=== PATIENT | male | born 1945 | race Caucasian/White ===

== ENCOUNTER 2017-06-17 05:44 | Inpatient (IN) | payer MEDICARE, BC ==
[2017-06-10 14:20] LABS: BASOPHILS % (AUTO) 0.4 % (0-1); EOSINOPHILS # (AUTO) 0.1 X10'3 (0-0.9); EOSINOPHILS % (AUTO) 1.9 % (0-6); LYMPHOCYTES # (AUTO) 2.1 X10'3 (1.1-4.8); LYMPHOCYTES % (AUTO) 28.7 % (21-51); MEAN CORPUSCULAR HEMOGLOBIN 31.5 PG (27.0-31.0); MEAN CORPUSCULAR HGB CONC 33.8 % (33.0-36.5); MEAN CORPUSCULAR VOLUME 93.2 FL (78-98); MONOCYTES # (AUTO) 0.8 X10'3 (0-0.9); MONOCYTES % (AUTO) 11.4 % (2-12); NEUTROPHILS # (AUTO) 4.2 X10'3 (1.8-7.7); NEUTROPHILS % (AUTO) 57.6 % (42-75); PRE OP HEMATOCRIT 47.5 % (42.0-52.0); PRE OP HEMOGLOBIN 16.1 g/dL (14.0-17.9); PRE OP PLATELET COUNT 214 X10'3 (140-440); RED CELL DISTRIBUTION WIDTH 13.9 % (11.5-14.5)
[2017-06-10 14:24] LABS: CLARITY,URINE CLEAR (Clear); COLOR,URINE STRAW (Yellow); GLUCOSE, URINE NEGATIVE (Neg); KETONES,URINE NEGATIVE (Neg); LEUKOCYTE ESTERASE ,URINE NEGATIVE (Neg); NITRITES, URINE NEGATIVE (Neg); OCCULT BLOOD,URINE NEGATIVE (Neg); PH,URINE 5.5 (4.8-8.0); PROTEIN,URINE NEGATIVE (Neg); UROBILINOGEN,URINE 0.2 E.U/dL (0.2-1.0)
[2017-06-10 14:31] LABS: UA COLLECTION TYPE VOIDED
[2017-06-10 14:44] LABS: ALBUMIN 3.9 G/DL (3.4-5.0); ALBUMIN/GLOBULIN RATIO 1.2 (1.1-1.5); ALKALINE PHOSPHATASE 75 IU/L (46-116); BLOOD UREA NITROGEN 20 MG/DL (7-18); CALCIUM 9.1 MG/DL (8.5-10.1); CHLORIDE 105 MMOL/L (99-107); PRE OP ALT 48 U/L (30-65); PRE OP ANION GAP 9 (8-16); PRE OP AST 22 U/L (10-37); PRE OP BILIRUB, TOTAL 0.5 MG/DL (0.0-1.0); PRE OP GLUCOSE 95 MG/DL (70-104); PRE OP POTASSIUM 3.8 MMOL/L (3.4-5.1); PRE OP SODIUM 143 MMOL/L (135-145); TOTAL CARBON DIOXIDE 28.7 MMOL/L (24-32); TOTAL PROTEIN 7.2 G/DL (6.4-8.2); eGFR 74 ML/MIN
[~2017-06-17] VITALS: Ht 175.3 cm; Wt 208.0 kg
[2017-06-17] VITALS (12 sets, daily range): BP systolic 111–146; BP diastolic 27–117
[~2017-06-17 05:44] MED LIST: BUPR100T13 PO; CELE-193 PO; FAMO-128 PO; LOSA1TAB36 PO; ZOLP10TA5 PO; cefazolin/dext.iso 2gm/50ml 50 ML IV ONE; famotidine 20mg tablet PO ONE; ringers solution, lacted 1,000 ML IV SCH
[2017-06-17] MEDS ORDERED: LIDOcaine 1% (10mg/ml) 2ml vial ONE (06:51)
[2017-06-17] MEDS ORDERED: BUPIVAcaine 0.5% inj/PF 30 ML ONE (06:52)
[2017-06-17] MEDS ORDERED: epiNEPHrine 1 mg/ml inj ONE (06:52)
[2017-06-17] MEDS ORDERED: gelatin sponge, absorbable (Gelfoam 100) sponge TP ONE (06:53)
[2017-06-17] MEDS ORDERED: bacitracin 15gm ointment TP ONE (06:53)
[2017-06-17] MEDS ORDERED: Thrombin (Bovine) 5,000 unit vial TP ONE (06:53)
[2017-06-17] MEDS ORDERED: midazolam 2 mg/2 ml injection ONE (07:15)
[2017-06-17] MEDS ORDERED: sevoflurane 250ml liquid IH ONE (07:32)
[2017-06-17] MEDS ORDERED: ePHEDrine 50MG/ML INJ. ONE (08:35)
[2017-06-17] MEDS ORDERED: ondansetron/PF 4mg/2ml inj ONE (08:35)
[2017-06-17] MEDS ORDERED: 0.9 % SODIUM CHLORIDE 10 ML VIAL ONE (08:35)
[2017-06-17] MEDS ORDERED: propofol inj 20 ML IV ONE (08:35)
[2017-06-17] MEDS ORDERED: fentaNYL/PF 50MCG/1 ML 2ML syringe ONE ×2 (08:35→10:30)
[2017-06-17] MEDS ORDERED: dexamethasone sod phosphate 4mg/ml inj. ONE (08:35)
[2017-06-17] MEDS ORDERED: phenylephrine 10mg/ml inj IV ONE (08:36)
[2017-06-17] MEDS ORDERED: ringers solution, lacted 1,000 ML IV SCH (08:58)
[2017-06-17] MEDS ORDERED: meperidine/PF 25mg/ml syringe IV ONE (09:00)
[2017-06-17] MEDS ORDERED: fentaNYL/PF 50MCG/1 ML 2ML syringe IV PRN ×3 (09:00)
[2017-06-17] MEDS ORDERED: acetaminophen 1,000mg/100ml IV 100 ML IV PRN (09:00)
[2017-06-17] MEDS ORDERED: ondansetron/PF 4mg/2ml inj IV PRN ×2 (09:00→10:30)
[2017-06-17] MEDS ORDERED: proCHLORperazine 10 MG/2 ml inj IV PRN (09:00)
[2017-06-17] MEDS ORDERED: temazepam 15mg capsule PO PRN (10:30)
[2017-06-17] MEDS ORDERED: acetaminophen 325mg tablet PO PRN (10:30)
[2017-06-17] MEDS ORDERED: cyclobenzaprine 10mg tablet PO PRN (10:30)
[2017-06-17] MEDS ORDERED: normal saline 1000ml 1,000 ML IV SCH (10:30)
[2017-06-17] MEDS ORDERED: mag hydrox/Alum hydrox/simeth 30ml oral suspension PO PRN (10:30)
[2017-06-17] MEDS ORDERED: magnesium hydroxide 30ml (MOM) UD suspension PO PRN (10:30)
[2017-06-17] MEDS ORDERED: bisacodyl 10mg suppository rectal RC PRN (10:30)
[2017-06-17] MEDS ORDERED: diphenhydrAMINE 50 mg/ml inj IV PRN (10:30)
[2017-06-17] MEDS ORDERED: simethicone 125mg capsule PO PRN (10:30)
[2017-06-17] MEDS ORDERED: HYDROcodone/acetaminophen 10/325mg tab PO PRN (10:30)
[2017-06-17] MEDS ORDERED: zolpidem 5mg tablet PO PRN (10:40)
[2017-06-17] MEDS ORDERED: ipratropium/albuterol 3ml nebule IH ONE (10:55)
[2017-06-17] MEDS ORDERED: buPROPion 75mg tablet PO SCH (11:00)
[2017-06-17] MEDS ORDERED: ketorolac trometh. 30mg/ml inj. IV SCH (14:00)
[2017-06-17] MEDS ORDERED: cefazolin 1gm/NS 100mL 100 ML IV SCH (16:00)
[2017-06-18] MEDS ORDERED: HYDROchlorothiazide 12.5mg capsule PO SCH (08:00)
[2017-06-18] MEDS ORDERED: losartan 50mg tablet PO SCH (08:00)
[2017-06-18] MEDS ORDERED: HYDROCHLOROTHIAZIDE PO SCH (08:00)
[2017-06-18] MEDS ORDERED: famotidine 20mg tablet PO SCH (08:00)
[2017-06-18] MEDS ORDERED: LOSARTAN PO SCH (08:00)
== END 2017-06-17 13:05 | disposition home or self-care (01) | DRG 472 ==
LOC: PAS IN 05:44 → EDSTATUS 07:30
PROVIDERS: ADMIT Neurological Surgery; ATTEND Neurological Surgery
PROC: 0RG20A0 Fusion of 2 or more Cervical Vertebral Joints with Interbody Fusion Device, Anterior Approach, Anterior Column, Open Approach (ICD-10-PCS; 2017-06-17)
PROC: 0RT30ZZ Resection of Cervical Vertebral Disc, Open Approach (ICD-10-PCS; 2017-06-17)
PROC: BR10ZZZ Fluoroscopy of Cervical Spine (ICD-10-PCS; principal; 2017-06-17 07:32)
DX: M48.02 Spinal stenosis, cervical region (principal); M50.022 Cervical disc disorder at C5-C6 level with myelopathy; M47.12 Other spondylosis with myelopathy, cervical region; M50.023 Cervical disc disorder at C6-C7 level with myelopathy; I73.9 Peripheral vascular disease, unspecified; I10 Essential (primary) hypertension; M19.90 Unspecified osteoarthritis, unspecified site; Z96.653 Presence of artificial knee joint, bilateral; Z79.01 Long term (current) use of anticoagulants; Z79.899 Other long term (current) drug therapy; Z79.82 Long term (current) use of aspirin
CPT/HCPCS: 36415; 71046; 72040; 76001; 80053; 81003; 85025; 86885; 86900; 86901; 87070; 94640; A6255; A6257; A7000; C1713; C1729; J0171; J0690; J1100; J2250; J2370; J2405; J2704; J3010; J3490; J7030; J7120; L0172

== ENCOUNTER 2017-08-02 11:03 | Outpatient (CLI) | payer MEDICARE, BC ==
[~2017-08-02 11:03] MED LIST changes: -cefazolin/dext.iso 2gm/50ml 50 ML IV ONE; -famotidine 20mg tablet PO ONE; -ringers solution, lacted 1,000 ML IV SCH
== END 2017-08-02 23:59 | disposition home or self-care (01) ==
LOC: 64 CT 11:03
PROVIDERS: ATTEND Neurological Surgery
DX: M48.02 Spinal stenosis, cervical region (principal); Z98.890 Other specified postprocedural states
CPT/HCPCS: 72125

== ENCOUNTER 2020-11-15 05:10 | Emergency (ER) | payer OTHER, MEDICARE, BC ==
[~2020-11-15] VITALS: Ht 172.7 cm; Wt 104.0 kg
[~2020-11-15 05:10] MED LIST changes: +ASPI-1071 PO; -BUPR100T13 PO; -CELE-193 PO; +HYDR12.55 PO; -LOSA1TAB36 PO; +LOSA25TA96 PO; +OXYC-150 PO
[2020-11-15] MEDS ORDERED: normal saline 1000ml 1,000 ML IV ONE (05:40)
[2020-11-15 05:44] LABS: CLARITY,URINE CLEAR (Clear); COLOR,URINE STRAW (Yellow); GLUCOSE, URINE NEGATIVE (Neg); KETONES,URINE NEGATIVE (Neg); LEUKOCYTE ESTERASE ,URINE NEGATIVE (Neg); NITRITES, URINE NEGATIVE (Neg); OCCULT BLOOD,URINE NEGATIVE (Neg); PROTEIN,URINE NEGATIVE (Neg); UROBILINOGEN,URINE 0.2 E.U/dL (0.2-1.0)
[2020-11-15] MEDS ORDERED: acetaminophen 325mg tablet PO ONE (05:50)
[2020-11-15 05:53] LABS: UA COLLECTION TYPE CLN CATCH MIDSTREAM
[2020-11-15 06:44] LABS: BASOPHILS % (AUTO) 0.4 % (0-1); EOSINOPHILS % (AUTO) 0.4 % (0-6); HEMATOCRIT 42.6 % (42.0-52.0); HEMOGLOBIN 14.8 g/dl (14.0-17.9); LYMPHOCYTES # (AUTO) 0.7 X10'3 (1.1-4.8); LYMPHOCYTES % (AUTO) 6.4 % (21-51); MEAN CORPUSCULAR HEMOGLOBIN 31.4 PG (27.0-31.0); MEAN CORPUSCULAR HGB CONC 34.8 g/dL (33.0-36.5); MEAN CORPUSCULAR VOLUME 90.2 FL (78-98); MEAN PLATELET VOLUME 7.9 FL (7.4-10.4); MONOCYTES % (AUTO) 9.5 % (2-12); NEUTROPHILS # (AUTO) 8.9 X10'3 (1.8-7.7); NEUTROPHILS % (AUTO) 83.3 % (42-75); PLATELET COUNT 177 X10'3 (140-440); RED BLOOD COUNT 4.73 X10'6 (4.70-6.10); RED CELL DISTRIBUTION WIDTH 13.7 % (11.5-14.5); WHITE BLOOD COUNT 10.6 X10'3 (4.5-11.0)
[2020-11-15 07:07] LABS: ALANINE AMINOTRANSFERASE 35 U/L (12-78); ALBUMIN 3.8 G/DL (3.4-5.0); ALBUMIN/GLOBULIN RATIO 1.2 (1.1-1.5); ALKALINE PHOSPHATASE 70 IU/L (46-116); ANION GAP 10 (8-16); ASPARTATE AMINO TRANSFERASE 24 U/L (10-37); BILIRUBIN,TOTAL 0.5 MG/DL (0.1-1.0); BLOOD UREA NITROGEN 24 MG/DL (7-18); CALCIUM 8.5 MG/DL (8.5-10.1); CHLORIDE 103 MMOL/L (99-107); CREATININE 0.96 MG/DL (0.60-1.10); GLUCOSE 104 MG/DL (70-104); POTASSIUM 3.7 MMOL/L (3.5-5.1); SODIUM 138 MMOL/L (135-145); TOTAL CARBON DIOXIDE 25.3 MMOL/L (24-32); eGFR 77 ML/MIN
[2020-11-15 07:44] VITALS: BP 116/71
== END 2020-11-15 08:18 | disposition home or self-care (01) ==
LOC: ER 05:11
DX: E86.0 Dehydration (principal); Z20.822 Contact with and (suspected) exposure to COVID-19; R68.89 Other general symptoms and signs; R00.0 Tachycardia, unspecified; I10 Essential (primary) hypertension; Z98.890 Other specified postprocedural states; Z88.5 Allergy status to narcotic agent; Z79.82 Long term (current) use of aspirin; Z79.899 Other long term (current) drug therapy
CPT/HCPCS: 36415; 71045; 80053; 81003; 83605; 84145; 85025; 87040; 87077; 87186; 87635; 93005; 99285; C9803; J7030

== ENCOUNTER 2024-06-25 19:07 | Emergency (ER) | payer OTHER, MEDICARE, BC ==
[~2024-06-25] VITALS: Ht 172.7 cm; Wt 94.8 kg
[~2024-06-25 19:07] MED LIST changes: +LOSA-415 PO; -LOSA25TA96 PO
[2024-06-25 20:28] VITALS: BP 145/86; PULSE 60; TEMP 97.8; O2SAT 95
[2024-06-25 20:30] VITALS: RESP 16
== END 2024-06-25 20:32 | disposition home or self-care (01) ==
LOC: ER 19:07
DX: S22.32XA Fracture of one rib, left side, initial encounter for closed fracture (principal); Z88.5 Allergy status to narcotic agent; I10 Essential (primary) hypertension; Z98.890 Other specified postprocedural states; Z79.82 Long term (current) use of aspirin; W19.XXXA Unspecified fall, initial encounter; Y93.89 Activity, other specified; Y92.89 Other specified places as the place of occurrence of the external cause; Y99.8 Other external cause status
CPT/HCPCS: 71100; 73030; 99284

== ENCOUNTER 2024-09-16 07:08 | Emergency (ER) | payer OTHER, MEDICARE, BC ==
[~2024-09-16] VITALS: Ht 172.7 cm; Wt 70.4 kg
[2024-09-16 07:11] VITALS: TEMP 98.2
[2024-09-16 07:38] LABS: BASOPHILS % (AUTO) 0.3 % (0-1); EOSINOPHILS # (AUTO) 0.1 X10'3 (0-0.9); EOSINOPHILS % (AUTO) 1.4 % (0-6); HEMATOCRIT 46.5 % (42.0-52.0); HEMOGLOBIN 16.1 g/dl (14.0-17.9); LYMPHOCYTES # (AUTO) 1.6 X10'3 (1.1-4.8); LYMPHOCYTES % (AUTO) 19.2 % (21-51); MEAN CORPUSCULAR HEMOGLOBIN 31.2 PG (27.0-31.0); MEAN CORPUSCULAR HGB CONC 34.5 g/dL (33.0-36.5); MEAN CORPUSCULAR VOLUME 90.3 FL (78-98); MEAN PLATELET VOLUME 7.6 FL (7.4-10.4); MONOCYTES # (AUTO) 0.8 X10'3 (0-0.9); MONOCYTES % (AUTO) 9.7 % (2-12); NEUTROPHILS % (AUTO) 69.4 % (42-75); PLATELET COUNT 237 X10'3 (140-440); RED BLOOD COUNT 5.15 X10'6 (4.70-6.10); RED CELL DISTRIBUTION WIDTH 16.1 % (11.5-14.5); WHITE BLOOD COUNT 8.6 X10'3 (4.5-11.0)
[2024-09-16 07:49] LABS: ALANINE AMINOTRANSFERASE 25 U/L (12-78); ALBUMIN 3.8 G/DL (3.4-5.0); ALBUMIN/GLOBULIN RATIO 1.3 (1.1-1.5); ALKALINE PHOSPHATASE 85 IU/L (46-116); ANION GAP 7 (8-16); ASPARTATE AMINO TRANSFERASE 24 U/L (10-37); BILIRUBIN,TOTAL 0.5 MG/DL (0.1-1.0); BLOOD UREA NITROGEN 16 MG/DL (7-18); BUN/CREATININE RATIO 17.8 (10.0-20.0); CALCIUM 8.7 MG/DL (8.5-10.1); CHLORIDE 106 MMOL/L (99-107); GLUCOSE 107 MG/DL (70-104); LIPASE 18 U/L (16-77); POTASSIUM 4.1 MMOL/L (3.5-5.1); SODIUM 142 MMOL/L (135-145); TOTAL PROTEIN 6.7 G/DL (6.4-8.2); eCRCL 65 ML/MIN; eGFR 82 ML/MIN
[2024-09-16 08:35] LABS: BILIRUBIN,URINE NEGATIVE (Neg); CLARITY,URINE CLEAR (Clear); COLOR,URINE YELLOW (Yellow); GLUCOSE, URINE NEGATIVE (Neg); KETONES,URINE NEGATIVE (Neg); LEUKOCYTE ESTERASE ,URINE NEGATIVE (Neg); NITRITES, URINE NEGATIVE (Neg); OCCULT BLOOD,URINE NEGATIVE (Neg); PROTEIN,URINE NEGATIVE (Neg); UROBILINOGEN,URINE 0.2 E.U/dL (0.2-1.0)
[2024-09-16 08:36] LABS: UA COLLECTION TYPE NON-SPECIFIED
[2024-09-16 09:00] VITALS: BP 122/83; PULSE 86; RESP 16; O2SAT 93
--- NOTE | 2024-09-16 09:51 | Physician Documentation ---
History of Present Illness ~ Chief Complaint: Bloody Stools Stated Complaint: RECTAL BLEEDING Time Seen by MD: 07:45 Primary Medical Doctor: MARK Mode of Arrival: Dropped Off HPI One bloody bowel movement this morning mixed with stool Medication Reconciliation Allergies: Coded Allergies: hydrocodone (Unverified Allergy, Unknown, ITCHING, 06/25/24) morphine (Verified Allergy, Unknown, HALLUCINATIONS, 06/25/24) Scheduled Aspirin (Ecotrin*), 81 MG PO BIDBD Famotidine (Pepcid), 1 TAB PO DAILY, (Reported) Hydrochlorothiazide (Hydrochlorothiazide), 1 TAB PO DAILY, (Reported) Losartan Potassium* (Cozaar*), 50 MG PO DAILY, (Reported) Scheduled PRN Oxycodone HCl/Acetaminophen (Percocet 10-325 mg Tablet), 1 TAB PO Q4HPRN PRN for pain Zolpidem Tartrate* (Ambien*), 1 TABLET PO HS PRN for sleep, (Reported) Past Medical History Past Medical History: Hypertension Past Surgical History: orthopedic surgeries Smoking Status: Never smoker Alcohol Use: Rarely Drug Use: none Lives with: Family Lives In: Home Occupation: retired Review of Systems All Other Systems at this time: Reviewed and Negative Physical Exam Vital Signs: RN Vital Signs have been reviewed: Yes, Temperature: 98.2, Source: Temporal, Heart Rate: 90, Respiratory Rate: 16, BP: 144/92, Pulse Oximetry: 95, Weight: 70.400 Oxygen Flow Rate: 0 Physical Exam HEENT: PERRL, moist oral mucosa, EOMI Pulmonary: No respiratory distress Cardiac: RRR, no murmur, rub or gallop GI: nondistended, soft, nontender, no guarding, no rebound MSK: no deformity Skin: w/d/i, no rash Neuro: alert, nonfocal Psych: normal affect Progress Results/Orders Results/Orders Completed Orders - NATHANIEL ABRAHAM MD Urinalysis, Cult If Indicated (09/16/24 07:14) Cbc/Diff (09/16/24 07:14) BMP (09/16/24 07:14) Lipase (09/16/24 07:14) CMP (09/16/24 07:14) Vital Signs 09/16/24 09/16/24 09/16/24 07:11 08:00 08:04 Temp 98.2 Pulse 108 90 Resp 17 16 16 B/P (MAP) 146/88 144/92 (109) Pulse Ox 95 95 O2 Flow Rate 0 Laboratory Tests Test 09/16/24 07:25 09/16/24 08:24 White Blood Count 8.6 Red Blood Count 5.15 Hemoglobin 16.1 Hematocrit 46.5 Mean Corpuscular Volume 90.3 Mean Corpuscular Hemoglobin 31.2 H Mean Corpuscular Hemoglobin Concent 34.5 Red Cell Distribution Width 16.1 H Platelet Count 237 Mean Platelet Volume 7.6 Neutrophils (%) (Auto) 69.4 Lymphocytes (%) (Auto) 19.2 L Monocytes (%) (Auto) 9.7 Eosinophils (%) (Auto) 1.4 Basophils (%) (Auto) 0.3 Neutrophils # (Auto) 6.0 Lymphocytes # (Auto) 1.6 Monocytes # (Auto) 0.8 Eosinophils # (Auto) 0.1 Basophils # (Auto) 0.0 CBC Comment Sodium Level 142 Potassium Level 4.1 Chloride Level 106 Carbon Dioxide Level 29.0 Anion Gap 7 L Blood Urea Nitrogen 16 Creatinine 0.90 Estimated GFR/1.73 m2 82 BUN/Creatinine Ratio 17.8 Glucose Level 107 H Calcium Level 8.7 Total Bilirubin 0.5 Aspartate Amino Transf (AST/SGOT) 24 Alanine Aminotransferase (ALT/SGPT) 25 Alkaline Phosphatase 85 Total Protein 6.7 Albumin 3.8 Globulin 2.9 Albumin/Globulin Ratio 1.3 Lipase 18 Chemistry Comments Urine Specimen Description Non-specified Urine Color Yellow Urine Clarity Clear Urine pH 6.0 Urine Specific [place] 1.020 Urine Protein Negative Urine Glucose (UA) Negative Urine Ketones Negative Urine Occult Blood Negative Urine Nitrite Negative Urine Bilirubin Negative Urine Urobilinogen 0.2 Urine Leukocyte Esterase Negative Urine Culture Indicated Not ind Volume Urine Centrifuged 10 ml Urine Comment Medical Decision Making Findings 79 year old male with blood per rectum. Additional Comments Ddx = diverticulitis, AVM, bleeding hemorrhoid, colon CA Departure Disposition: HOME / SELF CARE / HOMELESS Impression: Primary Impression: Lower GI bleed Condition: Stable Discharge Instructions: Bloody Stools Additional Instructions: Please follow up with your physician immediately to schedule a follow up and possible colonoscopy. Referrals: NO PRIMARY CARE PROVIDER (PCP) Education Educated: Patient, Family Educated regarding: diagnosis, treatment, prognosis, need for follow up Signature Scribe Signature: . Attestation: . NATHANIEL ABRAHAM MD Sep 16, 2024 09:51
== END 2024-09-16 10:07 | disposition home or self-care (01) ==
LOC: ER 07:09
DX: K92.1 Melena (principal); I10 Essential (primary) hypertension; Z88.5 Allergy status to narcotic agent; Z79.82 Long term (current) use of aspirin
CPT/HCPCS: 36415; 80053; 81003; 83690; 85025; 99284

== ENCOUNTER 2024-09-19 03:39 | Inpatient (IN) | payer OTHER, MEDICARE, BC ==
[~2024-09-19] VITALS: Ht 172.7 cm; Wt 92.2 kg
[2024-09-19] MEDS ORDERED: pantoprazole 40mg IV 80 MG in normal saline 100ml IV soln 100 ML IV ONE (03:50)
--- NOTE | 2024-09-19 04:07 | Physician Documentation ---
History of Present Illness ~ Chief Complaint: Bloody Stools Stated Complaint: GI BLEEDING Time Seen by MD: 03:47 OK to notify your PCP?: Yes Primary Medical Doctor: MARK Source: patient, RN/, RN notes reviewed, old records Mode of Arrival: POV Exam Limitations: no limitations HPI 79 year old male presents to the emergency department for complaints of a lower GI bleed that he was diagnosed with on his pervious visit, 09/16/2024 He states that his stools are bright red and have a liquid consistency Patients partner described it a s a murder scene. They state bleeding happens all the time and not only after a bowel movement. Patient denies blood thinners. He denies any c ramps, hemorrhoids, fever, nausea, vomiting, or dizziness. Medication Reconciliation Allergies: Coded Allergies: hydrocodone (Unverified Allergy, Unknown, ITCHING, 06/25/24) morphine (Verified Allergy, Unknown, HALLUCINATIONS, 06/25/24) Scheduled Bupropion Hcl (Wellbutrin), 100 MG PO TID, (Reported) Famotidine (Pepcid), 1 TAB PO DAILY, (Reported) Hydrochlorothiazide (Hydrochlorothiazide), 1 TAB PO DAILY, (Reported) Losartan Potassium* (Cozaar*), 50 MG PO DAILY, (Reported) Trazodone HCl (Trazodone HCl), 1 TAB PO HS, (Reported) Scheduled PRN Oxycodone HCl/Acetaminophen (Percocet 10-325 mg Tablet), 1 TAB PO Q4HPRN PRN for pain Discontinued Medications Aspirin (Ecotrin*), 81 MG PO BIDBD Discontinued Reason: patient no longer taking Zolpidem Tartrate* (Ambien*), 1 TABLET PO HS PRN for sleep, (Reported) Discontinued Reason: patient no longer taking Past Medical History Past Medical History: Hypertension Past Surgical History: orthopedic surgeries Alcohol Use: Rarely Drug Use: none Lives with: Family Lives In: Home Occupation: retired Review of Systems All Other Systems at this time: Reviewed and Negative ROS As stated above in the HPI, otherwise all systems are reviewed and negative. Physical Exam Vital Signs: RN Vital Signs have been reviewed: Yes, Temperature: 98.3, Source: Oral, Heart Rate: 71, Respiratory Rate: 16, BP: 122/80, Pulse Oximetry: 95, Weight: 92.200 Oxygen Flow Rate: 0 Pulse Oximetry Reflects: adequate oxygenation Physical Exam General: The patient is well developed, well nourished, nontoxic appearing and is in no acute distress. Skin: [place], warm and dry with no rashes. HEENT: Head was normocephalic and atraumatic. Eyes - pupils equal, round, reactive to light and accommodation. Extraocular movements were intact. Conjunctivae were nonicteric. Ears - bilateral tympanic membranes were normal. The mouth and oropharynx were clear with moist mucous membranes. There were no pharyngeal exudates or erythema. Neck: Supple and nontender. There was no jugular venous distention, lymphadenopathy, thyromegaly or masses. Chest: Clear to auscultation bilaterally without wheezes, rales or rhonchi. No accessory muscle use. No dullness to percussion. Heart: Rate regular and rhythmic. S1, S2. No murmurs. Palpation of the chest wall was normal. No rubs or thrills. Abdomen: Hyperactive bowel sounds. Soft, nontender and nondistended. No guarding or rebound. No hepatosplenomegaly or palpable masses. Extremities: No cyanosis, clubbing or edema. The patient moves all extremities. Pulses were equal and symmetric. Neurologic: Cranial nerves II-XII were intact. Sensation was intact to light touch throughout. Motor strength was 5/5 in all four extremities. Deep tendon reflexes were intact in both upper and lower extremities. Psychologic: The patient was oriented to person, place and time. The patient demonstrated appropriate judgement and insight. Rectal: No fissures no masses and no hemorrhoids Bright red blood in the rectum. Progress Progress Note 0453: The case was discussed with the resident who was informed on the patient. 0513: A message regarding the case was left with Dr. Ortega regarding the patients case. Results/Orders Reviewed/noted all lab results: Yes Results/Orders Orders - BRANNON MONTOYA MD Electrocardiogram (09/19/24 03:47) Chest,Single View (09/19/24 04:00) Gastrocult Set Up (09/19/24 03:47) Hemocult Set Up (09/19/24 03:47) Normal Saline 1000ml (Sodium Chloride 10 (09/19/24 03:50) Monitor (09/19/24 03:47) Saline Lock (09/19/24 03:47) Ct Abdomen Pelvis (09/19/24 04:30) Page Hospitalist (09/19/24 04:48) Fill Out Med Reconciliation (09/19/24 04:48) Ultrasound Of Abdomen (09/19/24 06:18) Completed Orders - BRANNON MONTOYA MD Cbc/Diff (09/19/24 03:47) Lipase (09/19/24 03:47) Ethanol (09/19/24 03:47) MG (09/19/24 03:47) Urinalysis, Cult If Indicated (09/19/24 03:47) Pt Inr (09/19/24 03:47) PTT (09/19/24 03:47) Electrocardiogram (09/19/24 03:47) Chest,Single View (09/19/24 04:00) BMP (09/19/24 03:47) Type And Screen (09/19/24 04:05) Pantoprazole 40mg Iv (Protonix 40mg Iv) (09/19/24 04:35) [id number]/Na Sulf-Bicarb/Kcl Gal (Golytely (09/19/24 04:35) Ct Abdomen Pelvis (09/19/24 04:30) Iohexol 300mg/Ml 100ml Inj. (Omnipaque-3 (09/19/24 04:39) Ultrasound Of Abdomen (09/19/24 06:18) Normal Saline 1000ml (Sodium Chloride 10 (09/19/24 06:25) Medications Received in ER Medications (Trade) Dose Ordered Sig/Michael Route PRN Reason Start Time Stop Time Status Last Admin Dose Admin Sodium Chloride 1,000 ml @ 100 mls/hr Q10H ONCE IV 09/19/24 03:50 09/19/24 13:49 09/19/24 05:27 100 MLS/HR (Protonix 40mg IV) 80 mg ONCE ONCE IV 09/19/24 04:35 09/19/24 04:36 DC 09/19/24 05:28 80 MG (Golytely oral solution) 4,000 ml DIRECTED ONCE PO 09/19/24 04:35 09/19/24 04:36 DC 09/19/24 06:06 4,000 ML (sodium chloride 1000ml IV soln) 1,000 ml ONCE ONCE IVB 09/19/24 06:25 09/19/24 06:27 DC 09/19/24 06:40 1,000 ML Sodium Chloride 1,000 ml @ 50 mls/hr Q20H IV 09/19/24 07:45 09/19/24 08:10 50 MLS/HR Vital Signs 09/19/24 09/19/24 09/19/24 09/19/24 03:44 05:00 05:00 06:03 Temp 98.3 Pulse 71 75 76 Resp 16 16 18 18 B/P (MAP) 122/80 154/94 (114) 165/98 (120) Pulse Ox 95 98 99 O2 Flow Rate 0 2.0 2.0 09/19/24 09/19/24 06:45 06:45 Temp 98.3 Pulse 75 Resp 12 18 B/P (MAP) 151/103 (119) Pulse Ox 97 O2 Flow Rate 0 Laboratory Tests Test 09/19/24 04:08 09/19/24 04:30 09/19/24 06:15 White Blood Count 7.8 Red Blood Count 4.88 Hemoglobin 15.3 Hematocrit 44.5 Mean Corpuscular Volume 91.2 Mean Corpuscular Hemoglobin 31.2 H Mean Corpuscular Hemoglobin Concent 34.3 Red Cell Distribution Width 16.0 H Platelet Count 207 Mean Platelet Volume 7.7 Neutrophils (%) (Auto) 62.3 Lymphocytes (%) (Auto) 26.0 Monocytes (%) (Auto) 9.6 Eosinophils (%) (Auto) 1.7 Basophils (%) (Auto) 0.4 Neutrophils # (Auto) 4.8 Lymphocytes # (Auto) 2.0 Monocytes # (Auto) 0.7 Eosinophils # (Auto) 0.1 Basophils # (Auto) 0.0 CBC Comment Prothrombin Time 10.9 INR International Normalized Ratio 1.1 Activated Partial Thromboplast Time 28 Coagulation Comments Sodium Level 140 Potassium Level 4.0 Chloride Level 106 Carbon Dioxide Level 30.5 Anion Gap 4 L Blood Urea Nitrogen 16 Creatinine 0.83 Estimated GFR/1.73 m2 90 BUN/Creatinine Ratio 19.3 Glucose Level 93 Calcium Level 9.2 Magnesium Level 2.1 Albumin 3.6 Lipase 18 Chemistry Comments Ethyl Alcohol Level < 10 Stool Occult Blood Positive H Urine Specimen Description Non-specified Urine Color Straw Urine Clarity Clear Urine pH 7.0 Urine Specific [place] 1.010 Urine Protein Negative Urine Glucose (UA) Negative Urine Ketones Negative Urine Occult Blood Negative Urine Nitrite Negative Urine Bilirubin Negative Urine Urobilinogen 0.2 Urine Leukocyte Esterase Negative Urine Culture Indicated Not ind Volume Urine Centrifuged 10 ml Urine Comment Re-Evaluation Re-Evaluation : Re-Evaluation: Improved Progress Patient was seen and examined. Patient was given reassurance. The patient was placed on a monitor IV lines were established liz immediately receive 80 mg of IV Protonix as well as IV fluids. Patient was typed and screened. Later patient had a rectal exam that had bright red blood per rectum. Abdomen had hyperactive bowel sounds which was a bit concerning. CT scan was then obtained which did not show any mass or GI bleed. Patient was having some abdominal pain and ultrasound the abdomen was obtained and showed no acute abnormality. Laboratory work showed normal vitals H and H is 15 and 44 BUN 16 and creatinine 0.83 chemistries otherwise within normal limits. Patient was typed and screened. Consultation with the hospitalist was made. Patient has been drinking his GoLYTELY and is having frequent stools. Blood per rectum is covering at this time. Message was left with GI for possible sigmoidoscopy. Colonoscopy if patient can complete his GoLYTELY. Patient is otherwise feeling a bit better. Continuous school lunch monitor interpretation shows normal sinus rhythm heart rate 70s, no ectopy, normal, my interpretation. Pulse oximetry monitor interpretation shows normal oxygenation at 98% room air, normal, my interpretation. EKG/XRAY/CT/US/VASC/MRI EKG : Additional Comment [facility] Test Date: 2024-09-19 Test Time: 04:18:12 Pat Name: DARYL MOIRALEV Department: [facility]- Patient ID: [id number] Room: Gender: M [employer] Manager: : 1945 Requested By: BRANNON MONTOYA Order Number: [id number] Reading MD: Dr. Brannon Montoya Measurements Intervals [place] Rate: 75 P: 46 [place]: 162 QRS: -43 QRSD: 99 T: 39 QT: 372 QTc: 416 Interpretive Statements Sinus rhythm Atrial premature complex Left anterior fascicular block Low voltage, precordial leads Consider anterior infarct Electronically Signed On 09-19-2024 4:35:[address] Brannon Montoya Please click the below link to view image of tracing. EKG Date and Time:09/19/24417 Electronically Signed by: BRANNON OMNTOYA MD Date and Time: 09/19/24434 Chest X-Ray : Additional Comments CHEST RADIOGRAPH Indication: gi bleed Technique: Single frontal view of the chest was obtained Comparison: CHEST,SINGLE VIEW on DOS: 11/15/20 FINDINGS: Lines and Tubes: None Lungs: Bibasilar atelectasis. Pleura: No effusion. No pneumothorax. Cardiomediastinal contours: Unremarkable Bones: No acute osseous abnormality. Bilateral shoulder replacements. ACDF. Posterior instrumented fusion in the thoracolumbar spine. IMPRESSION: 1. No acute cardiopulmonary disease. Electronically Signed by:NICOLAS ARTEAGA MD Date & Time: 09/19/24438 CT : Impression Exam: CT CT ABDOMEN PELVIS W/ IV CONTRAST History: ABD PAIN gi bleed Comparison Study: None available at time of dictation. Contrast: Type of contrast: Omnipaque 300 Contrast injected: 100 mL Contrast wasted: 0 TECHNIQUE: CT scan of the abdomen pelvis was performed with intravenous contrast from the lung bases to the proximal femurs. Coronal and sagittal reformatted images are provided. Radiation Dose Information: CT Dose: CTDI volume is 28.6 mGy. Dose-length product is 1471.3 mGy*cm FINDINGS: Lung Bases: No acute or significant lung base finding. Normal heart size. No pleural or pericardial effusion. Liver: The liver is normal in size. Normal enhancement. Low attenuating lesions for example in the right hepatic lobe measuring 1.4 cm most compatible with cysts. Gallbladder and Biliary Tree: The gallbladder is unremarkable. No biliary ductal dilatation. Spleen: Unremarkable Pancreas: The pancreas is normal in appearance without focal lesions or abnormal enhancement. Adrenal Glands: Unremarkable Kidneys: Kidneys demonstrate normal symmetric enhancement without focal lesions, calculi or hydronephrosis. Bladder: Mild urinary bladder wall thickening. Bowel: The stomach is grossly normal in appearance. The small bowel is normal in caliber. Severe colonic diverticulosis without acute diverticulitis. Normal caliber appendix. Peritoneum: No ascites. No pneumoperitoneum. Lymphadenopathy: No mesenteric, retroperitoneal or periportal lymphadenopathy. Abdominal Wall and Mesentery: Unremarkable. Vasculature: The visualized abdominal aorta is normal in size and caliber. Abdominal and pelvic vessels demonstrate normal enhancement. Pelvic Organs: Unremarkable Musculoskeletal: No aggressive focal bony lesions, acute fractures or dislocation. S shaped scoliosis. Posterior instrumented fusion in the lumbar spine and the bilateral sacroiliac joints. Bilateral hip joint space narrowing and osteophytes. Soft tissues: Unremarkable. IMPRESSION: 1. No acute abnormality in the abdomen or pelvis. 2. Severe sigmoid diverticulosis without acute diverticulitis. 3. Mild urinary bladder wall thickening. Correlation with clinical symptoms and urinalysis recommended. All CT scans at this medical facility are performed using dose modulation techniques as appropriate to a performed exam including the following: Automated exposure control was utilized; adjustment of the MA and/or KV according to patient size; and use of iterative reconstruction technique. Electronically Signed by:NICOLAS ARTEAGA MD Date & Time: 09/19/24 0504 Ultrasound : Ultrasound of: abdomen Impression Ordering Physician: BRANNON MONTOYA MD Exam: ULTRASOUND OF ABDOMEN INDICATION: ruq pain TECHNIQUE: Multiple real-time sonographic images of the abdomen were obtained. COMPARISON: None FINDINGS: The liver is homogenous in echogenicity. The liver measures 17.8 cm. No intrahepatic biliary ductal dilatation is noted. The gallbladder wall measures 0.3 cm and is unremarkable. No gallstones or sludge is seen. The common duct measures 0.5 cm and is unremarkable. No pericholecystic fluid is noted. Negative sonographic mirza's sign. The right kidney measures 10.5 cm. No hydronephrosis. The pancreas is not well visualized due to obscuration from bowel gas. The visualized portions of the IVC and aorta are grossly unremarkable. IMPRESSION: 1. No acute process. Electronically Signed by:NICOLAS ARTEAGA MD Date & Time: 09/19/24 0708 Medical Decision Making Additional info obtained from: old records Diff Dx GI Bleed:Consideration: Include: AE fistula, Angiodysplasia, Bleeding diathesis, Blood loss anemia, Carcinoma, Diverticulosis, Diverticulitis, Esophageal varicies, Esophagitis, Gastritis, Gastroenteritis, Inflammatory BD, Meckel's diverticulum, PUD, Other Departure Disposition: [facility] (ERASED) Admitted to Inpatient Unit: yes, to hospitalist Admission Level of Care: Med/Surg with Tele Impression: Primary Impression: Lower GI bleed Condition: Fair Referrals: NO PRIMARY CARE PROVIDER (PCP) Education Educated: Patient Educated regarding: diagnosis Signature Scribe Signature: Scribed for Brannon Montoya MD by Clay Regalado . 09/19/24 04:24 Attestation: The note accurately reflects work and decisions made by me.Brannon Montoya MD 09/19/24 04:07 BRANNON MNOTOYA MD Sep 19, 2024 04:07 CLAY BARAKAT Sep 19, 2024 04:24
--- NOTE | 2024-09-19 04:20 | ELECTROCARDIOGRAPH REPORT ---
[facility] Test Date: 2024-09-19 Test Time: 04:18:12 Pat Name: DARYL GERMAN Department: [facility]- Patient ID: [facility]-[id number] Room: Gender: M Foundry Helper: : 1945 Requested By: WENDY JUAREZ Order Number: [id number] Reading MD: Dr. Wendy Juarez Measurements Intervals [place] Rate: 75 P: 46 [place]: 162 QRS: -43 QRSD: 99 T: 39 QT: 372 QTc: 416 Interpretive Statements Sinus rhythm Atrial premature complex Left anterior fascicular block Low voltage, precordial leads Consider anterior infarct Electronically Signed On 09-19-2024 4:35:[address] Wendy Juarez Please click the below link to view image of tracing.
[2024-09-19 04:27] LABS: ALBUMIN 3.6 G/DL (3.4-5.0); ANION GAP 4 (8-16); BLOOD UREA NITROGEN 16 MG/DL (7-18); BUN/CREATININE RATIO 19.3 (10.0-20.0); CALCIUM 9.2 MG/DL (8.5-10.1); CHLORIDE 106 MMOL/L (99-107); CREATININE 0.83 MG/DL (0.60-1.10); ETHANOL < 10 MG/DL (<10); GLUCOSE 93 MG/DL (70-104); LIPASE 18 U/L (16-77); MAGNESIUM 2.1 MG/DL (1.5-2.4); SODIUM 140 MMOL/L (135-145); TOTAL CARBON DIOXIDE 30.5 MMOL/L (24-32); eCRCL 71 ML/MIN; eGFR 90 ML/MIN
[2024-09-19 04:30] LABS: APTT 28 SECONDS (22-32); INR 1.1 INR; PROTHROMBIN TIME 10.9 SECONDS (9.0-12.0)
[2024-09-19 04:34] LABS: BASOPHILS % (AUTO) 0.4 % (0-1); EOSINOPHILS # (AUTO) 0.1 X10'3 (0-0.9); EOSINOPHILS % (AUTO) 1.7 % (0-6); HEMATOCRIT 44.5 % (42.0-52.0); HEMOGLOBIN 15.3 g/dl (14.0-17.9); MEAN CORPUSCULAR HEMOGLOBIN 31.2 PG (27.0-31.0); MEAN CORPUSCULAR HGB CONC 34.3 g/dL (33.0-36.5); MEAN CORPUSCULAR VOLUME 91.2 FL (78-98); MEAN PLATELET VOLUME 7.7 FL (7.4-10.4); MONOCYTES # (AUTO) 0.7 X10'3 (0-0.9); MONOCYTES % (AUTO) 9.6 % (2-12); NEUTROPHILS # (AUTO) 4.8 X10'3 (1.8-7.7); NEUTROPHILS % (AUTO) 62.3 % (42-75); PLATELET COUNT 207 X10'3 (140-440); RED BLOOD COUNT 4.88 X10'6 (4.70-6.10); WHITE BLOOD COUNT 7.8 X10'3 (4.5-11.0)
[2024-09-19] MEDS ORDERED: iohexol 300mg/ml 100ml inj. ONE (04:39)
--- NOTE | 2024-09-19 04:42 | RADIOLOGY REPORT ---
CHEST RADIOGRAPH Indication: gi bleed Technique: Single frontal view of the chest was obtained Comparison: CHEST,SINGLE VIEW on DOS: 11/15/20 FINDINGS: Lines and Tubes: None Lungs: Bibasilar atelectasis. Pleura: No effusion. No pneumothorax. Cardiomediastinal contours: Unremarkable Bones: No acute osseous abnormality. Bilateral shoulder replacements. ACDF. Posterior instrumented fu ciro in the thoracolumbar spine. IMPRESSION: 1. No acute cardiopulmonary disease.
--- NOTE | 2024-09-19 05:10 | RADIOLOGY REPORT ---
Exam: CT CT ABDOMEN PELVIS W/ IV CONTRAST History: ABD PAIN gi bleed Comparison Study: None available at time of dictation. Contrast: Type of contrast: Omnipaque 300 Contrast injected: 100 mL Contrast wasted: 0 TECHNIQUE: CT scan of the abdomen pelvis was performed with intravenous contrast from the lung bases to the proximal femurs. Coronal and sagittal reformatted images are provided. Radiation Dose Information: CT Dose: CTDI volume is 28.6 mGy. Dose-length product is 1471.3 mGy*cm FINDINGS: Lung Bases: No acute or significant lung base finding. Normal heart size. No pleural or pericardial effusion. Liver: The liver is normal in size. Normal enhancement. Low attenuating lesions for example in the right hepatic lobe measuring 1.4 cm most compatible with cysts. Gallbladder and Biliary Tree: The gallbladder is unremarkable. No biliary ductal dilatation. Spleen: Unremarkable Pancreas: The pancreas is normal in appearance without focal lesions or abnormal enhancement. Adrenal Glands: Unremarkable Kidneys: Kidneys demonstrate normal symmetric enhancement without focal lesions, calculi or hydroneph rosis. Bladder: Mild urinary bladder wall thickening. Bowel: The stomach is grossly normal in appearance. The small bowel is normal in caliber. Severe col onic diverticulosis without acute diverticulitis. Normal caliber appendix. Peritoneum: No ascites. No pneumoperitoneum. Lymphadenopathy: No mesenteric, retroperitoneal or periportal lymphadenopathy. Abdominal Wall and Mesentery: Unremarkable. Vasculature: The visualized abdominal aorta is normal in size and caliber. Abdominal and pelvic vess els demonstrate normal enhancement. Pelvic Organs: Unremarkable Musculoskeletal: No aggressive focal bony lesions, acute fractures or dislocation. S shaped scoliosis . Posterior instrumented fusion in the lumbar spine and the bilateral sacroiliac joints. Bilateral h ip joint space narrowing and osteophytes. Soft tissues: Unremarkable. IMPRESSION: 1. No acute abnormality in the abdomen or pelvis. 2. Severe sigmoid diverticulosis without acute diverticulitis. 3. Mild urinary bladder wall thickening. Correlation with clinical symptoms and urinalysis recommende d. All CT scans at this medical facility are performed using dose modulation techniques as appropriate t o a performed exam including the following: Automated exposure control was utilized; adjustment of th e MA and/or KV according to patient size; and use of iterative reconstruction technique.
[2024-09-19] MEDS: normal saline 1000ml 1,000 ML IV ONE (05:27)
[2024-09-19] MEDS: pantoprazole 40 MG vial IV ONE (05:28)
[2024-09-19] MEDS: PEG 3350/Na sulf,bicarb,Cl/KCl oral sol 4 liter bottle PO ONE (06:06)
[2024-09-19 06:28] LABS: BILIRUBIN,URINE NEGATIVE (Neg); CLARITY,URINE CLEAR (Clear); COLOR,URINE STRAW (Yellow); GLUCOSE, URINE NEGATIVE (Neg); KETONES,URINE NEGATIVE (Neg); LEUKOCYTE ESTERASE ,URINE NEGATIVE (Neg); NITRITES, URINE NEGATIVE (Neg); OCCULT BLOOD,URINE NEGATIVE (Neg); PROTEIN,URINE NEGATIVE (Neg); UROBILINOGEN,URINE 0.2 E.U/dL (0.2-1.0)
[2024-09-19 06:32] LABS: UA COLLECTION TYPE NON-SPECIFIED
[2024-09-19] MEDS: normal saline 1000ML IV soln IVB ONE (06:40)
[2024-09-19] MEDS ORDERED: BUPR100T13 PO (06:57)
[2024-09-19] MEDS ORDERED: TRAZ-256 PO (06:57)
--- NOTE | 2024-09-19 07:24 | RADIOLOGY REPORT ---
INDICATION: ruq pain TECHNIQUE: Multiple real-time sonographic images of the abdomen were obtained. COMPARISON: None FINDINGS: The liver is homogenous in echogenicity. The liver measures 17.8 cm. No intrahepatic bilia ry ductal dilatation is noted. The gallbladder wall measures 0.3 cm and is unremarkable. No gallstones or sludge is seen. The comm on duct measures 0.5 cm and is unremarkable. No pericholecystic fluid is noted. Negative sonographic mirza's sign. The right kidney measures 10.5 cm. No hydronephrosis. The pancreas is not well visualized due to obscuration from bowel gas. The visualized portions of the IVC and aorta are grossly unremarkable. IMPRESSION: 1. No acute process.
[2024-09-19] MEDS ORDERED: magnesium sulf-water 2g/50mL 50 ML IV PRN (07:45)
[2024-09-19] MEDS ORDERED: potassium Cl 40MEQ/1/2NS 520ml 520 ML IV PRN (07:45)
[2024-09-19] MEDS ORDERED: magnesium Cl slow-release 64mg tablet PO PRN (07:45)
[2024-09-19] MEDS ORDERED: acetaminophen 325mg tablet PO PRN ×2 (07:45)
[2024-09-19] MEDS ORDERED: ondansetron/PF 4mg/2ml inj IV PRN (07:45)
[2024-09-19] MEDS ORDERED: magnesium sulf-water 4G/100mL 100 ML IV PRN (07:45)
[2024-09-19] MEDS ORDERED: potassium Cl 20 mEq SR tablet PO PRN ×2 (07:45)
[2024-09-19] MEDS: normal saline 1000ml 1,000 ML IV SCH (08:10)
[2024-09-19 08:42] LABS: HEMATOCRIT 44.8 % (42.0-52.0); HEMOGLOBIN 15.5 g/dl (14.0-17.9); MEAN CORPUSCULAR HEMOGLOBIN 31.4 PG (27.0-31.0); MEAN CORPUSCULAR HGB CONC 34.6 g/dL (33.0-36.5); MEAN CORPUSCULAR VOLUME 90.7 FL (78-98); MEAN PLATELET VOLUME 7.5 FL (7.4-10.4); PLATELET COUNT 200 X10'3 (140-440); RED BLOOD COUNT 4.94 X10'6 (4.70-6.10); RED CELL DISTRIBUTION WIDTH 15.8 % (11.5-14.5); WHITE BLOOD COUNT 7.6 X10'3 (4.5-11.0)
[2024-09-19 08:53] LABS: OCCULT BLOOD STOOL POSITIVE (Neg)
[2024-09-19] MEDS: pantoprazole 40MG/NS 100ML BAG 100 ML IV SCH (11:35)
[2024-09-19 11:39] VITALS: TEMP 98.3
[2024-09-19] MEDS ORDERED: OXYC-150 PO (12:20)
[2024-09-19 17:03] VITALS: BP 169/100; PULSE 57; RESP 12
[2024-09-19] MEDS ORDERED: MIDAZolam 1 MG/ML 5ML VIAL ONE (20:22)
[2024-09-19] MEDS ORDERED: fentaNYL/PF 50MCG/1 ML 2ML syringe ONE ×2 (20:22→20:40)
--- NOTE | 2024-09-19 21:01 | HISTORY AND PHYSICAL ---
History & Physical Providers to ~ History of Present Illness History of Present Illness Patient was seen in presence of his who was concerned about patient's altered level of consciousness and hallucination. His breathing was also getting worse. Patient follows with Fahad Amaral in outpatient setting. Patient's all medications reviewed and discussed Allergies: Coded Allergies: hydrocodone (Unverified Allergy, Unknown, ITCHING, 06/25/24) morphine (Verified Allergy, Unknown, HALLUCINATIONS, 06/25/24) Home Medications Home Medications Active Reported Percocet 10-325 mg Tablet (Oxycodone HCl/Acetaminophen) 10 Mg-325 Mg Tablet 1 Tab PO Q4HPRN PRN Wellbutrin (Bupropion Hcl) 100 Mg Tablet 100 Mg PO TID Trazodone HCl 100 Mg Tablet 1 Tab PO HS 30 Days Hydrochlorothiazide 12.5 Mg Tablet 1 Tab PO DAILY 30 Days Cozaar* (Losartan Potassium) 25 Mg Tablet 50 Mg PO DAILY 30 Days Pepcid (Famotidine) 20 Mg Tablet 1 Tab PO DAILY Family History Family History: Patient reports no known family medical history. Exam Vitals: Vital Signs Date Time Temp Pulse Resp B/P (MAP) Pulse Ox O2 Delivery O2 Flow Rate FiO2 09/19/24 18:30 61 09/19/24 14:34 Room Air 09/19/24 11:39 98.3 16 138/78 (98) 99 0 General: General-patient not in any acute distress, alert awake chronically ill-appearing/age-appropriate/looks comfortable, not lethargic HEENT-atraumatic normocephalic, neck supple without elevated JVD, no thyromegaly or carotid bruit. No lymphadenopathy bilaterally. Eyes-no icterus or pallor seen in eyes Chest-mild wheezing and decreased breath sounds present to auscultation bilaterally, breathing nonlabored no tachypnea, no crackles. Heart-S1-S2 normal, regular heart rate no murmur Abdomen bowel sounds positive on auscultation, soft nondistended nontender no guarding, no rigidity Skin no active skin rash, Left side visible lump over cervical collar bone Neurology-grossly intact, nonfocal alert awake Extremity- no pedal edema able to move all 4 extremities Psychiatry - patient is not confused or agitated cooperated well during physical examination Diagnostic Data Last Recorded Lab Results: 09/19/24 0832 09/19/24 0408 Diagnostic Data: Laboratory Tests Test 09/19/24 04:08 Prothrombin Time 10.9 SECONDS (9.0-12.0) INR International Normalized Ratio 1.1 INR Activated Partial Thromboplast Time 28 SECONDS (22-32) Coagulation Comments Additional Plan Patient was admitted for acute COPD exacerbation we will continue with the nebulizer steroids and antibiotic treatment. Patient's smokes cannabis patient is strongly advised to stop cannabis and risks explained For type 2 diabetes patient is started on hypo and hyperglycemic protocol Home medication reconciliation we will be done once updated in electronic record system. Side effects of medication discussed with patient and his in visit. Altered level of consciousness-resolved, Patient is taking multiple medication which can make him confused and dizzy Left side visible lump over cervical collar bone All labs diagnostic workup discussed in detail in visit with patient and his . Patient will bring recent labs done in outpatient setting for comparison. Code status discussed with the patient patient wishes to stay full code. Patient's current condition is guarded we will continue to follow patient in a.m. MICHELLE CALLEJAS MD Sep 19, 2024 21:01
[2024-09-19 21:05] VITALS: BP 129/80; PULSE 67; RESP 21; O2SAT 96
--- NOTE | 2024-09-19 21:05 | HISTORY AND PHYSICAL ---
History & Physical Providers to CC ~ History of Present Illness Reason for Admit\Complaint: Blood in stools History of Present Illness Patient is 79-year-old male with history of hypertension , insomnia and chronic back pain issues he came to the hospital with his who was present at bedside when I evaluated the patient. Patient was concerned about blood in his stools which she mentioned is bright red in color since couple of days and this is the 1st episode he had for bleeding in his stools like this he never had similar episodes in past. He denies any nausea vomiting or abdominal pain , no cramps, hemorrhoids, fever or dizziness. He denied any use of any NSAID group of pain medication over the counter . As per patient ER doctor did the rectal examination which was positive for bleeding. Patient was already started on GoLYTELY by the time I saw the patient by Dr. Ballesteros. As per patient he had colonoscopy and EGD done more than five years back in past was unremarkable. Patient denied any other concerns to me. Allergies: Coded Allergies: hydrocodone (Unverified Allergy, Unknown, ITCHING, 06/25/24) morphine (Verified Allergy, Unknown, HALLUCINATIONS, 06/25/24) Home Medications Home Medications Active Reported Percocet 10-325 mg Tablet (Oxycodone HCl/Acetaminophen) 10 Mg-325 Mg Tablet 1 Tab PO Q4HPRN PRN Wellbutrin (Bupropion Hcl) 100 Mg Tablet 100 Mg PO TID Trazodone HCl 100 Mg Tablet 1 Tab PO HS 30 Days Hydrochlorothiazide 12.5 Mg Tablet 1 Tab PO DAILY 30 Days Cozaar* (Losartan Potassium) 25 Mg Tablet 50 Mg PO DAILY 30 Days Pepcid (Famotidine) 20 Mg Tablet 1 Tab PO DAILY Past Medical History Past Medical History history of hypertension , insomnia and chronic back pain Past Surgical History Surgical History Comment Non continue Family History Family History: Patient reports no known family medical history. Past Social History Social History Comment Patient lives with his , able to ambulate follows in [facility] As stated above in the HPI, otherwise all systems are reviewed and negative. Exam Vitals: Vital Signs Date Time Temp Pulse Resp B/P (MAP) Pulse Ox O2 Delivery O2 Flow Rate FiO2 09/19/24 18:30 61 09/19/24 14:34 Room Air 09/19/24 11:39 98.3 16 138/78 (98) 99 0 General: General-patient not in any acute distress, alert awake oriented, chronically ill-appearing, age-appropriate, looks comfortable HEENT-atraumatic normocephalic, neck supple without elevated JVD, no thyromegaly or carotid bruit. No lymphadenopathy bilaterally. Eyes-no icterus or pallor seen in eyes Chest-clear to auscultation bilaterally, breathing nonlabored no tachypnea, no wheezing, no crepitation, no crackles. Heart-S1-S2 normal, regular heart rate no murmur Abdomen bowel sounds positive on auscultation, soft nondistended nontender no guarding, no rigidity Skin no active skin rash Neurology-grossly intact, nonfocal alert awake oriented Extremity- no pedal edema able to move all 4 extremities Psychiatry - patient is not confused or agitated cooperated during physical examination Diagnostic Data Last Recorded Lab Results: 09/19/24 0832 09/19/24 0408 Diagnostic Data: Laboratory Tests Test 09/19/24 04:08 Prothrombin Time 10.9 SECONDS (9.0-12.0) INR International Normalized Ratio 1.1 INR Activated Partial Thromboplast Time 28 SECONDS (22-32) Coagulation Comments Additional Plan # Patient is admitted for GI bleeding. Contacted Dr. Campos who is willing to evaluate the patient. Recommended to continue GoLYTELY and keep the patient on clear liquids for today and GI team we will contact patient's family for possible EGD. Patient is already started on IV fluids and IV Protonix. We will continue to monitor hemoglobin and hematocrit. Patient is advised to stay NPO for possible colonoscopy. # other comorbidities include hypertension, chronic depression insomnia and chronic back pain-home medication reconciliation done the time of admission. # code status discussed with the patient in presence of his who wishes to stay full code. Patient's current condition is guarded. We will continue to follow patient in a.m. Date of Service: Sep 19, 2024 Billing Provider: MICHELLE CALLEJAS MD Common Visit Codes: 28293-ALFFYVH INP/OBS CARE (HIGH) Secondary Visit Codes: 97042-YADBRLEF CARE PLAN 30 MINUTES MICHELLE CALLEJAS MD Sep 19, 2024 21:05
[2024-09-19 21:15] VITALS: BP 133/80; PULSE 69; RESP 19; O2SAT 95
[2024-09-19] MEDS ORDERED: traZODone 50mg tablet PO SCH (21:18)
[2024-09-19 21:25] VITALS: BP 130/85; PULSE 74; RESP 14; O2SAT 96
[2024-09-19 21:35] VITALS: BP 148/89; PULSE 70; RESP 12; O2SAT 95
[2024-09-20] MEDS ORDERED: buPROPion 100mg tablet PO SCH (08:00)
[2024-09-20] MEDS ORDERED: losartan 25mg tablet PO SCH (08:00)
== END 2024-09-19 23:00 | disposition left against medical advice (07) | DRG 378 ==
LOC: ER 03:40 → ED HOLD 07:49 → ORTHO 4S 13:19
PROVIDERS: ADMIT Internal Medicine; ATTEND Internal Medicine
PROC: 0DJD8ZZ Inspection of Lower Intestinal Tract, Via Natural or Artificial Opening Endoscopic (ICD-10-PCS; principal; 2024-09-19)
DX: K57.31 Diverticulosis of large intestine without perforation or abscess with bleeding (principal); J44.1 Chronic obstructive pulmonary disease with (acute) exacerbation; I10 Essential (primary) hypertension; G47.00 Insomnia, unspecified; G89.29 Other chronic pain; M54.9 Dorsalgia, unspecified; E11.9 Type 2 diabetes mellitus without complications; Z88.8 Allergy status to other drugs, medicaments and biological substances; Z88.5 Allergy status to narcotic agent; Z53.29 Procedure and treatment not carried out because of patient's decision for other reasons
CPT/HCPCS: 36415; 45378; 71045; 74177; 76700; 80048; 80320; 81003; 82272; 83690; 83735; 85025; 85027; 85610; 85730; 86885; 86900; 86901; 87081; 93005; 96361; 96374; 99152; 99153; 99285; A4615; A4620; G0378; J2250; J2470; J3010; J7030; Q9967